=== PATIENT | female | born 1940 | race Caucasian/White ===

== ENCOUNTER → 2018-02-10 | Outpatient (CLI) | payer MEDICARE ==
[~2018-02-10] MED LIST: AC325T PO; ASP81TEC PO; CAPT50TA3 PO; DILT360C27 PO; ERGO400T6 PO; HCT25T PO; LOSA100T7 PO; MTF500T PO; MULT1CAP27 PO; NAPR220C11 PO; POTASSIUM 10MEQ; PRV20T PO; VLS80C PO; reclast IV
== END ==
LOC: CARD 08:39
PROVIDERS: ATTEND Internal Medicine Cardiovascular Disease
DX: R01.1 Cardiac murmur, unspecified (principal); I10 Essential (primary) hypertension; E78.5 Hyperlipidemia, unspecified; R06.02 Shortness of breath
CPT/HCPCS: 93306

== ENCOUNTER → 2020-09-24 | Outpatient (CLI) | payer MEDICARE | LOC: CARD 10:48 | PROVIDERS: ATTEND Internal Medicine Cardiovascular Disease | DX: I11.9 Hypertensive heart disease without heart failure (principal) | CPT/HCPCS: 93306 ==

== ENCOUNTER → 2021-09-16 | Outpatient (CLI) | payer MEDICARE ==
[~2021-09-16] VITALS: Ht 160 cm; Wt 65.0 kg
[~2021-09-16] MED LIST changes: +REGADENOSON 0.4 MG/5 ML SYR (LEXISCAN) IV ONE
[2021-09-16] MEDS: CATHETER FLUSH 10 ML SYR IV PRN ×2 (07:45→09:14)
[2021-09-16 09:13] VITALS: BP 162/71
--- NOTE | 2021-09-17 07:33 | Cardiology Stress Test Report ---
Stress Test Report Date of Procedure/Referring: Date of Procedure: Sep 16, 2021 Veronica Wilkins Admitting Physician Grace Marquez MD Indications: HTN Baseline Heart Rate: 66 Baseline Blood Pressure: Blood Pressure Systolic: 162 Blood Pressure Diastolic: 71 Baseline Vitals Vital Signs Date Time Temp Pulse Resp B/P (MAP) Pulse Ox O2 Delivery O2 Flow Rate FiO2 09/16/21 09:13 66 16 162/71 (101) 98 Room Air Baseline EKG: Baseline EKG: NSR Summary After explaining the procedure to the patient, she signed a consent and then brought to the stress nuclear laboratory. Patient received 0.4 mg Lexiscan for stress test, ECG, heart rate and blood pressure were monitored continuously. Resting and stress dose of radio tracer were injected, imaging was acquired and reviewed in short axis, horizontal long axis and vertical long axis views. TID: 1.25 SSS: 2 SDS: 2 EF: 90 1. Patient tolerated Lexiscan well 2. Breast attenuation with typical female pattern, no significant ischemia or infarction on SPECT images 3. Small left ventricular size with good contractility, ejection fraction calculated 90%, I believe it is an overestimation 4. Transient ischemic dilatation marker is elevated due to the small left ventricular size ROMANA ARIAS MD Sep 17, 2021 07:33
== END ==
LOC: CARD 07:31
PROVIDERS: ATTEND Physician Assistant
DX: I10 Essential (primary) hypertension (principal)
CPT/HCPCS: 78452; 93017; A9502

== ENCOUNTER 2022-07-17 06:29 | Emergency (ER) | payer MEDICARE ==
[~2022-07-17] VITALS: Ht 160 cm; Wt 65.0 kg
[~2022-07-17 06:29] MED LIST changes: -REGADENOSON 0.4 MG/5 ML SYR (LEXISCAN) IV ONE
[2022-07-17] MEDS ORDERED: MTP25TSR (06:50)
[2022-07-17] MEDS ORDERED: PANT40TA52 (06:50)
[2022-07-17] MEDS ORDERED: TRAM50TA3 (06:50)
[2022-07-17] MEDS ORDERED: LISI20TA26 (06:50)
[2022-07-17] MEDS ORDERED: AMLO-251 (06:50)
[2022-07-17 07:26] LABS: BASOPHILS % (AUTO) 0 % (0-10); EOSINOPHILS % (AUTO) 0 % (0-10); HEMATOCRIT 31 % (35-52); HEMOGLOBIN 10.3 g/dL (11.5-16.0); LYMPHOCYTES # (AUTO) 1.2 10^3/uL (1.0-4.0); LYMPHOCYTES % (AUTO) 18 % (12-44); MEAN CORPUSCULAR HEMOGLOBIN 30 pg (25-34); MEAN CORPUSCULAR HGB CONC 34 g/dL (32-36); MEAN CORPUSCULAR VOLUME 91 fL (80-99); MEAN PLATELET VOLUME 10.1 fL (9.0-12.2); MONOCYTES # (AUTO) 1.1 10^3/uL (0.0-1.0); MONOCYTES % (AUTO) 16 % (0-12); NEUTROPHILS # (AUTO) 4.4 10^3/uL (1.8-7.8); NEUTROPHILS % (AUTO) 65 % (42-75); PLATELET COUNT 354 10^3/uL (130-400); WHITE BLOOD COUNT 6.7 10^3/uL (4.3-11.0)
[2022-07-17] MEDS ORDERED: NS IV 500 ML 500 ML IV ONE (07:30)
[2022-07-17 07:43] LABS: ALBUMIN 3.8 GM/DL (3.2-4.5); POTASSIUM 3.8 MMOL/L (3.6-5.0)
--- NOTE | 2022-07-17 07:43 | ED GI ---
General Chief Complaint: Abdominal/GI Problems Stated Complaint: NO BOWEL MOVEMENTS FOR 4 DAYS,RECTAL PAIN Nursing Triage Note: c/o constipation x7 days after hip surgery not responsive to laxatives/stool softeners. Source of Information: Patient, Family Exam Limitations: No Limitations History of Present Illness Date Seen by Provider: Jul 17, 2022 Time Seen by Provider: 06:51 Initial Comments Here with report 7 days of constipation but actually this goes back 2-1/2 weeks since her hip surgery. She is here with her and both are answering questions. reports that she is not eating much and reports attempts with Dulcolax suppositories x6 and fleets enema without improvement. Patient reports that she has rectal pain/fullness and lower abdominal pain/fullness. Denies nausea or vomiting. Denies fever or chills. She is not on pain medicines and has not been since surgery. She reports she is still passing some gas. Timing/Duration: 1 Week (Getting worse), Getting Worse Severity/Quality: Aching Location: LLQ, Suprapubic Radiation: Other (Rectum) Activities at Onset: None Associated Symptoms: No Back Pain, No Fever/Chills, No Nausea/Vomiting, No Shortness of Air, No Weakness Allergies and Home Medications Allergies Coded Allergies: No Known Drug Allergies (Verified , 12/29/08) Patient Home Medication List Home Medication List Reviewed: Yes Amlodipine Besylate (Amlodipine Besylate) 10 Mg Tablet, (Reported) Entered as Reported by: JOSE BERGERON on 07/17/22649 Last Action: New Order Aspirin (Aspirin Ec 81 Mg) 81 Mg Tabec, 81 MG PO DAILY, (Reported) Entered as Reported by: BELLA CUNNINGHAM on 10/01/11 0803 Lisinopril (Lisinopril) 20 Mg Tablet, (Reported) Entered as Reported by: JOSE BERGERON on 07/17/22649 Last Action: New Order Metformin Hcl (Metformin 500 Mg) 500 Mg Tablet, 1 EACH PO BID WITH MEALS, (Reported) Entered as Reported by: BELLA CUNNINGHAM on 09/30/11 1432 Metoprolol Succinate (Metoprolol Succinate) 25 Mg Tab.er.24h, (Reported) Entered as Reported by: JOSE BERGERON on 07/17/22649 Last Action: New Order Pantoprazole Sodium (Pantoprazole Sodium) 40 Mg Tablet., (Reported) Entered as Reported by: JOSE BERGERON on 07/17/22 0650 Last Action: New Order Pravastatin Sodium (Pravachol) 20 Mg Tablet, 1 TAB PO DAILY, (Reported) Entered as Reported by: JOSIE FRANCO on 05/18/13 1342 Tramadol HCl (Tramadol HCl) 50 Mg Tablet, (Reported) Entered as Reported by: JOSE BERGERON on 07/17/22 0650 Last Action: New Order Discontinued Medications Acetaminophen (Tylenol) 325 Mg Tablet, 650 MG PO DAILY, (Reported) Discontinued Reason: No Longer Taking Entered as Reported by: JOSIE FRANCO on 05/18/13 1344 Last Action: Discontinued Diltiazem Hcl (Diltiazem 24HR Er) 360 Mg Cap.er.24h, 360 MG PO DAILY, (Reported) Discontinued Reason: No Longer Taking Entered as Reported by: JOSIE FRANCO on 05/18/13 1343 Last Action: Discontinued Ergocalciferol (Vitamin D2) (Vitamin D2) 400 Unit Tablet, 400 UNIT PO DAILY, (Reported) Discontinued Reason: No Longer Taking Entered as Reported by: SHARONA DOZIER on 04/15/121516 Last Action: Discontinued Multivitamins (Multivitamins) 1 Each Capsule, 1 EACH PO DAILY, (Reported) Discontinued Reason: No Longer Taking Entered as Reported by: BELLA CUNNINGHAM on 10/01/11 0803 Last Action: Discontinued Valsartan (Diovan) 80 Mg Tab, 160 MG PO DAILY, (Reported) Discontinued Reason: No Longer Taking Entered as Reported by: JOSIE FRANCO on 05/18/13 1338 Last Action: Discontinued [Potassium 10MEQ] , DAILY, (Reported) Discontinued Reason: No Longer Taking Entered as Reported by: SHARONA DOZIER on 04/15/121516 Last Action: Discontinued [reclast] , IV yearly, (Reported) Discontinued Reason: No Longer Taking Entered as Reported by: BELLA CUNNINGHAM on 09/30/11 1432 Last Action: Discontinued Review of Systems Review of Systems Constitutional: see HPI; No chills, No fever EENTM: No Nose Congestion, No Throat Pain Respiratory: Denies Cough, Denies Shortness of Air Cardiovascular: No Symptoms Reported Gastrointestinal: Abdominal Pain, Constipated; Denies Diarrhea, Denies Rectal Bleeding, Denies Vomiting Genitourinary: Denies Burning, Denies Drainage, Denies Flank Pain Musculoskeletal: No back pain, No muscle pain Skin: no symptoms reported All Other Systems Reviewed Negative Unless Noted: Yes Past Tokuhjs-Tcrktn-Weytdr Hx Patient Social History Tobacco Use?: No Substance use?: No Alcohol Use?: No Pt feels they are or have been: No Immunizations Up To Date First/Initial COVID19 Vaccinat: x3 Past Medical History Surgery/Hospitalization HX: htn, gerd, niddm, hip, cholecystectomy Surgeries: Yes Orthopedic Respiratory: No Cardiac: Yes Hypertension Neurological: No Gastrointestinal: No Musculoskeletal: Yes Endocrine: Yes Diabetes, Non-Insulin dep Family Medical History Reviewed and Corrections made No Pertinent Family Hx Physical Exam Vital Signs Vital Signs - First Documented 07/17/22 06:43 Temp 36.9 Pulse 88 Resp 16 B/P (MAP) 149/69 (95) Pulse Ox 98 O2 Delivery Room Air Capillary Refill : Less Than 3 Seconds Height/Weight/BMI Height: 5'4.00" Weight: 175lbs. oz. [id number]; 25.00 BMI Method: General Appearance: WD/WN, no apparent distress HEENT: PERRL/EOMI, pharynx normal Neck: full range of motion, supple Respiratory: lungs clear, normal breath sounds Cardiovascular: regular rate, rhythm, no murmur Gastrointestinal: normal bowel sounds, non tender, soft, no organomegaly, no pulsatile mass Rectal: normal exam, normal rectal tone, heme negative stool, other (No stool ball noted) Neurologic/Psychiatric: alert, oriented x 3 Skin: normal color, warm/dry Progress/Results/Core Measures Results/Orders Lab Results Laboratory Tests Test 07/17/22 07:15 Range/Units White Blood Count 6.7 4.3-11.0 10^3/uL Red Blood Count 3.39 L 3.80-5.11 10^6/uL Hemoglobin 10.3 L 11.5-16.0 g/dL Hematocrit 31 L 35-52 % Mean Corpuscular Volume 91 80-99 fL Mean Corpuscular Hemoglobin 30 25-34 pg Mean Corpuscular Hemoglobin Concent 34 32-36 g/dL Red Cell Distribution Width 12.7 10.0-14.5 % Platelet Count 354 130-400 10^3/uL Mean Platelet Volume 10.1 9.0-12.2 fL Immature Granulocyte % (Auto) 1 % Neutrophils (%) (Auto) 65 42-75 % Lymphocytes (%) (Auto) 18 12-44 % Monocytes (%) (Auto) 16 H 0-12 % Eosinophils (%) (Auto) 0 0-10 % Basophils (%) (Auto) 0 0-10 % Neutrophils # (Auto) 4.4 1.8-7.8 10^3/uL Lymphocytes # (Auto) 1.2 1.0-4.0 10^3/uL Monocytes # (Auto) 1.1 H 0.0-1.0 10^3/uL Eosinophils # (Auto) 0.0 0.0-0.3 10^3/uL Basophils # (Auto) 0.0 0.0-0.1 10^3/uL Immature Granulocyte # (Auto) 0.0 0.0-0.1 10^3/uL Sodium Level 139 135-145 MMOL/L Potassium Level 3.8 3.6-5.0 MMOL/L Chloride Level 101 98-107 MMOL/L Carbon Dioxide Level 25 21-32 MMOL/L Anion Gap 13 5-14 MMOL/L Blood Urea Nitrogen 13 7-18 MG/DL Creatinine 1.11 0.60-1.30 MG/DL Estimat Glomerular Filtration Rate 50 BUN/Creatinine Ratio 12 Glucose Level 125 H 70-105 MG/DL Calcium Level 10.0 8.5-10.1 MG/DL Corrected Calcium 10.2 H 8.5-10.1 MG/DL Total Bilirubin 0.7 0.1-1.0 MG/DL Aspartate Amino Transf (AST/SGOT) 18 5-34 U/L Alanine Aminotransferase (ALT/SGPT) 11 0-55 U/L Alkaline Phosphatase 94 40-136 U/L C-Reactive Protein High Sensitivity 4.16 H 0.00-0.50 MG/DL Total Protein 7.1 6.4-8.2 GM/DL Albumin 3.8 3.2-4.5 GM/DL My Orders Orders - MARIA G CARROLL MD Cbc With Automated Diff (07/17/22 07:17) Comprehensive Metabolic Panel (07/17/22 07:17) Hs C Reactive Protein (07/17/22 07:17) Ed Iv/Invasive Line Start (07/17/22 07:17) Ns Iv 500 Ml (Sodium Chloride 0.9%) (07/17/22 07:30) Ct Abdomen/Pelvis W (07/17/22 07:58) Iohexol Injection (Omnipaque 350 Mg/Ml 1 (07/17/22 08:15) Received Contrast (Hold Metformin- Contr (07/17/22 08:15) Ns (Ivpb) (Sodium Chloride 0.9% Ivpb Bag (07/17/22 08:15) Medications Given in ED Current Medications Medications Dose Ordered Sig/Sparkle Route Start Time Stop Time Status Last Admin Dose Admin Iohexol 100 ml ONCE ONCE IV 07/17/22 08:15 07/17/22 08:16 DC 07/17/22 08:34 80 ML Sodium Chloride 100 ml ONCE ONCE IV 07/17/22 08:15 07/17/22 08:16 DC 07/17/22 08:34 100 ML Sodium Chloride 500 ml @ 0 mls/hr Q0M ONCE IV 07/17/22 07:30 07/17/22 07:31 DC 07/17/22 07:23 1,000 MLS/HR Vital Signs/I&O 07/17/22 06:43 Temp 36.9 Pulse 88 Resp 16 B/P (MAP) 149/69 (95) Pulse Ox 98 O2 Delivery Room Air Blood Pressure Mean: 95 Fecal Occult: Negative Progress Progress Note : Progress Note Seen and evaluated. Considered just doing abdominal x-ray but rectal exam performed and no stool ball noted. Leads to more concern related to possible diverticulitis and other intra-abdominal pathology. She is still passing gas but states that it is less so complete obstruction less likely. Given her age and symptoms and lack of clear constipation findings, we will go ahead and do IV and check labs with anticipation of CT abdomen and pelvis with contrast. Normal saline 500 mL bolus ordered. This was discussed with patient and family who agree. Monitor patient. 0930: CT scan does not show any acute findings. There is some fullness around the right ovary. This would benefit from outpatient follow-up. I did discuss the case with Dr. Marquez and she will follow the patient in clinic. I did discuss this with the patient and family. Overall she feels much more comfortable given current findings. Discharged home with return precautions. Patient verbalized understand instructions and agreement with plan. Departure Impression Primary Impression: Abdominal pain Qualified Codes: R10.30 - Lower abdominal pain, unspecified Additional Impression: Right ovarian cyst Disposition: 01 HOME, SELF-CARE Condition: Improved Departure-Patient Inst. Decision time for Depature: 09:39 Referrals: CAMILLE MARQUEZ MD (PCP/Family) Primary Care Physician Patient Instructions: Severe Abdominal Pain, Adult (DC), Ovarian Cysts Add. Discharge Instructions: All discharge instructions reviewed with patient and/or family. Voiced und erstanding. Follow a light diet over the next few days and then advance as tolerated. You may add Metamucil or FiberCon or other fiber additives to your diet to prevent constipation. Follow-up with Dr. Marquez. Call her office for appointment. Return for worse pain, vomiting, weakness, not passing gas, fever or other concerns as needed. Copy Copies To 1: CAMILLE MARQUEZ MD, TIMOTHY D MD Jul 17, 2022 07:43
[2022-07-17 07:46] LABS: TOTAL PROTEIN 7.1 GM/DL (6.4-8.2)
[2022-07-17 07:48] LABS: BILIRUBIN,TOTAL 0.7 MG/DL (0.1-1.0)
[2022-07-17 07:50] LABS: CREATININE SERUM 1.11 MG/DL (0.60-1.30)
[2022-07-17] MEDS ORDERED: HOLD METFORMIN - RECEIVED CONTRAST 20 ML VIAL IV SCH (08:15)
[2022-07-17] MEDS ORDERED: NS 100 ML (IVPB) BAG IV ONE (08:15)
[2022-07-17] MEDS ORDERED: IOHEXOL 350 MG/ML 100 ML (OMNIPAQUE 350) VIAL IV ONE (08:15)
--- NOTE | 2022-07-17 08:44 | Diagnostic Imaging Report ---
EXAMINATION: CT abdomen and pelvis with intravenous contrast. TECHNIQUE: Multiple contiguous axial images were obtained through the abdomen and pelvis after the uneventful administration of intravenous contrast. All CT scans use one or more of the following dose optimizing techniques: automated exposure control, MA and/or KvP adjustment based on patient size and exam type or iterative reconstruction. HISTORY: lower abd pain COMPARISON: None available. FINDINGS: Lung bases: There are mild reticulonodular opacities within the lung bases. Solid organs: The liver is normal without focal lesion. The gallbladder is surgically absent. There is no biliary ductal dilation. Pancreas is normal. Spleen is normal. Adrenal glands are normal. The kidneys are normal without hydronephrosis. Bowel: The stomach and small bowel are normal without obstruction. There is scattered colonic diverticulosis. No findings of acute appendicitis. Peritoneum: There is no intraperitoneal free fluid or free air. No suspicious lymphadenopathy. Vasculature: Calcification of the aorta without aneurysm. Musculoskeletal: Degenerative changes of the spine without suspicious osseous lesion or compression fracture. Surgical changes from right hip arthroplasty. Surgical changes of the anterior abdominal wall. Pelvis: There is a partially calcified uterine fibroid. Prominent appearance of the right ovary. The urinary bladder is normal. IMPRESSION: 1. No acute abnormality in the abdomen or pelvis. 2. Reticulonodular opacities within the lung bases could represent atypical infection. 3. Prominent appearance of the right ovary. Consider correlation with pelvic ultrasound. Dictated by: Dictated on workstation # [id number]
[2022-07-17 09:43] VITALS: BP 137/62
== END 2022-07-17 09:43 | disposition home or self-care (01) ==
LOC: EDUNIT# 06:29 → ER 06:33
DX: N83.201 Unspecified ovarian cyst, right side (principal); Z90.49 Acquired absence of other specified parts of digestive tract
CPT/HCPCS: 36415; 74177; 80053; 82274; 85025; 86141

== ENCOUNTER → 2022-10-16 | Outpatient (CLI) | payer MEDICARE ==
[~2022-10-16] MED LIST changes: +AMLO-251; +LISI20TA26; +MTP25TSR; +PANT40TA52; +TRAM50TA3
== END ==
LOC: CARD 07:50
PROVIDERS: ATTEND Internal Medicine Cardiovascular Disease
DX: I10 Essential (primary) hypertension (principal); I25.10 Atherosclerotic heart disease of native coronary artery without angina pectoris
CPT/HCPCS: 93306